=== PATIENT | male | born 1985 | race African-American/Black ===

== ENCOUNTER 2017-05-19 09:41 | Emergency (ER) | payer OTHER ==
[~2017-05-19] VITALS: Ht 188 cm; Wt 111.0 kg
[~2017-05-19 09:41] MED LIST: KEFLEX500 MG PO; POLYTRIM EYE DR10 ML LEFT EYE; ZOFRAN4 MG PO
[2017-05-19] MEDS ORDERED: FLEXERIL5 MG PO (12:48)
[2017-05-19] MEDS ORDERED: MOTRIN600 MG PO (12:48)
[2017-05-19 12:54] VITALS: BP 116/84
== END 2017-05-19 13:05 | disposition home or self-care (01) ==
LOC: EME 09:41 → RME 09:41
DX: M54.5 Low back pain (principal); Y99.0 Civilian activity done for income or pay; V89.0XXA Person injured in unspecified motor-vehicle accident, nontraffic, initial encounter
CPT/HCPCS: 99281; 99283

== ENCOUNTER 2018-01-12 00:28 | Emergency (ER) | payer SELFPAY ==
[~2018-01-12] VITALS: Ht 188 cm; Wt 112.8 kg
[~2018-01-12 00:28] MED LIST changes: +FLEXERIL5 MG PO; +MOTRIN600 MG PO
[2018-01-12 04:44] LABS: BASOPHIL (%) 0.3 % (0-1); EOSINOPHIL (%) 0 % (0-5); HEMATOCRIT 43.4 % (38.0-50.0); HEMOGLOBIN 15.5 G/DL (12.5-16.6); IMMATURE GRANULOCYTE (%) 0.3 % (0.0-0.7); LYMPHOCYTE (%) 53.5 % (15-42); LYMPHOCYTE COUNT 1.9 K/uL (1.0-2.8); MCHC 35.7 G/DL (30.0-36.0); MCV 83.9 FL (86-99); MONOCYTE (%) 11.1 % (3-12); MONOCYTE COUNT 0.4 K/uL (0-0.8); NEUTROPHIL (%) 34.8 % (45-76); NEUTROPHIL COUNT 1.3 K/uL (1.8-6.4); PLATELET COUNT 156 K/uL (156-360); RBC DIS.WIDTH-CV 12.1 % (11.8-14.6); RBC DIS.WIDTH-SD 37.1 % (39-53); RED BLOOD COUNT 5.17 M/uL (4.00-5.50); WHITE BLOOD COUNT 3.6 K/uL (4.1-10.2)
[2018-01-12 05:00] LABS: CHLORIDE 102 mEq/L (99-109); POTASSIUM 3.1 mEq/L (3.7-5.4); SODIUM 135 mEq/L (136-147)
[2018-01-12 05:02] LABS: GLUCOSE 106 mg/dL (70-99)
[2018-01-12 05:06] LABS: CREATININE 1.1 mg/dL (0.6-1.3); GFR ESTIMATE (CALCULATED) > 59 mL/min/ (58.99-99999)
[2018-01-12 05:07] LABS: UREA NITROGEN (BUN) 7 mg/dL (9-23)
[2018-01-12] MEDS ORDERED: TAMIFLU75 MG PO (05:49)
[2018-01-12 05:56] VITALS: BP 116/60
== END 2018-01-12 05:57 | disposition home or self-care (01) ==
LOC: EME 00:28
PROVIDERS: Emergency Medicine
DX: J10.89 Influenza due to other identified influenza virus with other manifestations (principal); R51 Headache; F17.200 Nicotine dependence, unspecified, uncomplicated
CPT/HCPCS: 80048; 85025; 87502; 87651 90; 99281; 99285; J1200; J1885; J2765; J7030